=== PATIENT | female | born 1970 | race American Indian/Alaskan Native ===

== ENCOUNTER 2021-11-18 20:36 | Emergency (ER) | payer SELFPAY ==
[2021-11-18] MEDS ORDERED: SODIUM CHLORIDE 0.9% 1000 ML 1,000 ML IV ONE (20:51)
[2021-11-18] MEDS ORDERED: ALBUTEROL 2.5 MG/3 ML NEBU IH ONE (20:51)
[2021-11-18] MEDS ORDERED: IPRATROPIUM 0.02% NEBU 2.5 ML IH ONE (20:51)
[2021-11-18] MEDS ORDERED: LORazepam 2 MG/ML VIAL IV ONE (20:51)
--- NOTE | 2021-11-18 21:16 | Emergency Department Report ---
HPI - General Chief Complaint: Dyspnea/Respdistress Time Seen by Provider: 11/18/21 20:45 - HPI HPI: 51-year-old -[place] female presents to the emergency department via EMS from home with complaint of a 1 day history of progressively worsening shortness of breath, wheezing, dry cough that she feels is an asthma exacerbation. The patient did not have any home medications but was able to borrow an albuterol inhaler from a family member and says that she took 10 puffs from that inhaler without much relief. The albuterol has also made her feel anxious and jittery. She denies any fever, chest pain, lower extremity swelling. She is vaccinated for COVID-19. She received Solu-Medrol and magnesium in route with EMS. No recent travel or sick contacts at home. The patient has been intubated 1 time previously due to her asthma. ED Past Medical Hx - Past Medical History Hx Asthma: Yes - Medications Home Medications: Home Medications Medication Instructions Recorded Confirmed Last Taken Type ALBUTEROL NEB's [Proventil 0.083% 2.5 mg IH TID PRN #1 box 11/19/21 Unknown Rx NEBS] Albuterol Mdi (or & Nicu Only) 2 puff IH QID PRN #8.5 gram 11/19/21 Unknown Rx [ProAir HFA Inhaler] Azithromycin [Zithromax Z-SO] 250 mg PO DAILY #6 tab 11/19/21 Unknown Rx predniSONE [Deltasone] 20 mg PO QDAY #4 tab 11/19/21 Unknown Rx ED Review of Systems ROS: Stated complaint: DIFF BREATHING Other details as noted in HPI Comment: All other systems reviewed and negative Constitutional: denies: chills, fever Eyes: denies: eye pain, vision change ENT: denies: ear pain, throat pain Respiratory: cough, shortness of breath, wheezing Cardiovascular: denies: chest pain, edema Gastrointestinal: denies: abdominal pain, vomiting Genitourinary: denies: dysuria, discharge Musculoskeletal: denies: back pain, arthralgia Skin: denies: rash, lesions Neurological: denies: headache, weakness Psychiatric: anxiety Physical Exam - Physical Exam Vital Signs: Vital Signs 11/18/21 21:05 Temperature 98.1 F Pulse Rate 109 H Respiratory 26 H Rate Blood Pressure 159/92 [Right] O2 Sat by Pulse 95 Oximetry Physical Exam: GENERAL: The patient is well-developed well-nourished. HENT: Normocephalic. Atraumatic. Patient has moist mucous membranes. EYES: Extraocular motions are intact. NECK: Supple. Trachea is midline. CHEST/LUNGS: Moderate wheezing throughout the chest. There is tachypnea with some mild conversational dyspnea. HEART/CARDIOVASCULAR: Regular. There is mild tachycardia. There is no murmur. ABDOMEN: Abdomen is soft, nontender. Patient has normal bowel sounds. There is no abdominal distention. SKIN: Skin is warm and dry. No lower extremity pitting edema. NEURO: The patient is awake, alert, and oriented. The patient is cooperative. The patient has no focal neurologic deficits. Normal speech. MUSCULOSKELETAL: There is no tenderness or deformity. There is no limitation range of motion. ED Course Vital Signs 11/18/21 21:05 Temperature 98.1 F Pulse Rate 109 H Respiratory 26 H Rate Blood Pressure 159/92 [Right] O2 Sat by Pulse 95 Oximetry ED Medical Decision Making - Lab Data Result diagrams: 11/18/21 20:54 11/18/21 20:54 Lab Results 11/18/21 11/18/21 11/18/21 Range/Units 20:54 20:54 20:54 WBC 11.5 H (4.5-11.0) K/mm3 RBC 5.87 H (3.65-5.03) M/mm3 Hgb 12.6 (10.1-14.3) gm/dl Hct 40.1 (30.3-42.9) % MCV 68 L (79-97) fl MCH 21 L (28-32) pg MCHC 31 (30-34) % RDW 17.5 H (13.2-15.2) % Plt Count 330 (140-440) K/mm3 Lymph % (Auto) 21.6 (13.4-35.0) % [place] % (Auto) 7.1 (0.0-7.3) % Eos % (Auto) 1.3 (0.0-4.3) % Baso % (Auto) 0.2 (0.0-1.8) % Lymph # (Auto) 2.5 (1.2-5.4) K/mm3 [place] # (Auto) 0.8 (0.0-0.8) K/mm3 Eos # (Auto) 0.1 (0.0-0.4) K/mm3 Baso # (Auto) 0.0 (0.0-0.1) K/mm3 Seg Neutrophils % 69.8 (40.0-70.0) % Seg Neutrophils # 8.0 H (1.8-7.7) K/mm3 Sodium 136 L (137-145) mmol/L Potassium 3.9 (3.6-5.0) mmol/L Chloride 99.1 (98-107) mmol/L Carbon Dioxide 22 (22-30) mmol/L Anion Gap 19 mmol/L BUN 10 (7-17) mg/dL Creatinine 0.7 (0.6-1.2) mg/dL Estimated GFR > 60 ml/min BUN/Creatinine Ratio 14 % Glucose 122 H (65-100) mg/dL Calcium 8.9 (8.4-10.2) mg/dL Total Bilirubin 0.30 (0.1-1.2) mg/dL AST 13 (5-40) units/L ALT 9 (7-56) units/L Alkaline Phosphatase 103 (35-129) units/L Troponin T < 0.010 (0.00-0.029) ng/mL NT-Pro-B Natriuret Pep 31.29 (0-450) pg/mL Total Protein 8.9 H (6.3-8.2) g/dL Albumin 4.2 (3.9-5) g/dL Albumin/Globulin Ratio 0.9 % - EKG Data -: EKG Interpreted by [facility] EKG shows normal: sinus rhythm, axis, intervals, QRS complexes, ST-T waves Rate: normal - EKG Data When compared to previous EKG there are: previous EKG unavailable Interpretation: normal EKG - Radiology Data Radiology results: report reviewed XR chest 1V ap INDICATION / CLINICAL INFORMATION: SOB. COMPARISON: None available. FINDINGS: SUPPORT DEVICES: None. HEART /PULMONARY VASCULATURE: No significant abnormality. LUNGS / PLEURA: Patchy bibasilar airspace opacities. No sizable pleural effusion. No pneumothorax. ADDITIONAL FINDINGS: No significant additional findings. IMPRESSION: Patchy bibasilar airspace opacities, suspicious for pneumonia. - Medical Decision Making This patient presents to the emergency department with a complaint of shortness of breath, wheezing, coughing over the past 1 to 2 days. She did not have any response to home albuterol inhaler use. In route she got Solu-Medrol and magnesium. Initially the patient had moderate wheezing/bronchospasm. An IV was placed and she was given some IV fluid, Ativan, and then was given a prolonged breathing treatment with both albuterol and Atrovent. Chest x-ray was read by radiology as showing some basilar patchy infiltrates concerning for pneumonia. Labs have been unremarkable including CBC, metabolic panel, negative troponin and normal BNP. The patient was reevaluated multiple times over multiple hours and says she is feeling greatly improved. There is only some mild expiratory wheezing.. The patient no longer has any tachypnea or conversational dyspnea. The patient had an ambulatory pulse ox test and she did not have any significant increased work of breathing or any significant hypoxia. For these reasons patient appears safe for discharge home at this time. We discussed seeking outpatient COVID-19 testing, despite being vaccinated, secondary to the bi lateral patchy pneumonia, shortness of breath and this current pandemic. She will be discharged home with albuterol inhaler and nebulizer medications, a short course of steroids, and antibiotics. She has been instructed to follow-up with primary care and return to the emergency department with any worsening of her symptoms or with any acute distress. Critical Care Time: No Critical care attestation.: If time is entered above; I have spent that time in minutes in the direct care of this critically ill patient, excluding procedure time. ED Disposition Clinical Impression: Bronchospasm Asthma exacerbation Qualifiers: Asthma severity: unspecified severity Asthma persistence: unspecified Qualified Code(s): J45.901 - Unspecified asthma with (acute) exacerbation Pneumonia Qualifiers: Pneumonia type: due to unspecified organism Laterality: bilateral Lung location: unspecified part of lung Qualified Code(s): J18.9 - Pneumonia, unspecified organism Disposition: 01 HOME / SELF CARE / HOMELESS Is pt being admited?: No Condition: Stable Instructions: Bacterial Pneumonia (ED), Asthma, Adult, Bronchospasm, Adult, Community-Acquired Pneumonia, Adult Additional Instructions: Please follow-up with a primary care physician in the next few days. I have given you a referral for a local primary care physician, Dr. Lewis, and a primary care clinic, [facility]. With your shortness of breath, pneumonia on chest x-ray, and this current pandemic, I do recommend that you get tested for COVID-19. Unfortunately I am unable to test you for COVID-19 to the emergency department. COVID-19 test can be done at some primary care offices, some urgent cares, and there should be a list of testing facilities through the [facility]. Take all medications as prescribed. Return to the emergency department with any worsening of your symptoms, new or concerning symptoms not addressed during this current emergency department visit, or with any acute distress. Prescriptions: predniSONE [Deltasone] 20 mg PO QDAY #4 tab Albuterol Mdi (or & Nicu Only) [ProAir HFA Inhaler] 2 puff IH QID PRN #8.5 gram PRN Reason: Shortness Of Breath ALBUTEROL NEB's [Proventil 0.083% NEBS] 2.5 mg IH TID PRN #1 box PRN Reason: Wheezing Azithromycin [Zithromax Z-SO] 250 mg PO DAILY #6 tab Referrals: FAITH LEWIS MD [Staff Physician] - 3-5 Days [facility] [Provider Group] - 3-5 Days Time of Disposition: 00:31
[2021-11-18 21:20] LABS: Basophils % (Auto) 0.2 % (0.0-1.8); Eosinophils # (Auto) 0.1 K/mm3 (0.0-0.4); Eosinophils % (Auto) 1.3 % (0.0-4.3); Hematocrit 40.1 % (30.3-42.9); Hemoglobin 12.6 gm/dl (10.1-14.3); Lymphocytes # (Auto) 2.5 K/mm3 (1.2-5.4); Lymphocytes % (Auto) 21.6 % (13.4-35.0); Mean Corpuscular HGB Conc 31 % (30-34); Monocytes # (Auto) 0.8 K/mm3 (0.0-0.8); Monocytes % (Auto) 7.1 % (0.0-7.3); Platelet Count 330 K/mm3 (140-440); Red Blood Count 5.87 M/mm3 (3.65-5.03); Red Cell Distribution Width 17.5 % (13.2-15.2)
[2021-11-18 21:27] LABS: Mean Corpuscular Volume 68 fl (79-97)
[2021-11-18 21:35] LABS: Alanine Aminotransferase 9 units/L (7-56); Albumin 4.2 g/dL (3.9-5); Blood Urea Nitrogen 10 mg/dL (7-17); Calcium 8.9 mg/dL (8.4-10.2); Hemolysis Index 4
--- NOTE | 2021-11-18 21:35 | XRay Report ---
XR chest 1V ap INDICATION / CLINICAL INFORMATION: SOB. COMPARISON: None available. FINDINGS: SUPPORT DEVICES: None. HEART /PULMONARY VASCULATURE: No significant abnormality. LUNGS / PLEURA: Patchy bibasilar airspace opacities. No sizable pleural effusion. No pneumothorax. ADDITIONAL FINDINGS: No significant additional findings. IMPRESSION: Patchy bibasilar airspace opacities, suspicious for pneumonia. Signer Name: Gary Cooper MD Signed: 11/18/2021 9:31 PM Workstation Name: [id number]
[2021-11-18 21:36] LABS: BUN/Creatinine Ratio 14
[2021-11-19 03:11] VITALS: BP 117/79
--- NOTE | 2021-11-21 09:19 | Electrocardiograph Report ---
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
== END 2021-11-19 01:50 | disposition home or self-care (01) ==
LOC: ED 20:36
DX: J45.901 Unspecified asthma with (acute) exacerbation (principal); J18.9 Pneumonia, unspecified organism
CPT/HCPCS: 36415; 71045; 80053; 83880; 84484; 85025; 93005; 94644; 96361; 96374; 99284; J2060; J7030; Q0162

== ENCOUNTER 2021-12-05 06:00 | Emergency (ER) | payer SELFPAY ==
[2021-12-05] MEDS ORDERED: IPRATROPIUM 0.02% NEBU 2.5 ML IH ONE (06:37)
[2021-12-05] MEDS ORDERED: ALBUTEROL 2.5 MG/3 ML NEBU IH ONE (06:37)
[2021-12-05] MEDS ORDERED: LORazepam 2 MG/ML VIAL IV ONE (06:38)
--- NOTE | 2021-12-05 06:44 | Emergency Department Report ---
HPI - General Chief Complaint: Adult Asthma Time Seen by Provider: 12/05/21 06:31 - HPI HPI: Room 20 The patient is a 51-year-old female present with chief complaint of shortness of breath. The patient has a history of asthma states she ran out of her Advair approximately 2 months ago. The patient states a friend of hers also had Advair so she loaned her her inhaler. The patient states she ran out of that inhaler approximately 3 weeks ago for the past 3 weeks she has felt short of breath as she is rebounded. Patient states albuterol nebs helped temporarily. Patient denies history of fever but admits to an occasional nonproductive cough. Rolando locke states she has been vaccinated against COVID. EMS was called this morning secondary to shortness of breath the patient was administered 2 g of magnesium sulfate, Solu-Medrol 125 mg IV and 0.3 mg of epi by EMS prior to arrival. ED Past Medical Hx - Past Medical History Hx Asthma: Yes - Surgical History Past Surgical History?: Yes - Family History Family history: no significant - Social History Smoking Status: Never Smoker Substance Use Type: None (Denies illicit drug use), Alcohol (Occasional) - Medications Home Medications: Home Medications Medication Instructions Recorded Confirmed Last Taken Type Azithromycin [Zithromax Z-SO] 250 mg PO DAILY #6 tab 11/19/21 Unknown Rx predniSONE [Deltasone] 20 mg PO QDAY #4 tab 11/19/21 Unknown Rx ALBUTEROL NEB's [Proventil 0.083% 2.5 mg IH TID PRN #1 box 12/05/21 Unknown Rx NEBS] Albuterol Mdi (or & Nicu Only) 2 puff IH QID PRN #8.5 gram 12/05/21 Unknown Rx [ProAir HFA Inhaler] Fluticasone/Salmeterol [Advair 1 puff IH BID #1 12/05/21 Unknown Rx Diskus 500-50 mcg] Prednisone [predniSONE 10 mg 10 mg PO .TAPER #1 12/05/21 Unknown Rx (6-Day Pack, 21 Tabs)] ED Review of Systems ROS: Stated complaint: ASTHMA ATTACK Other details as noted in HPI Constitutional: denies: fever Eyes: denies: eye pain ENT: denies: throat pain Respiratory: cough, shortness of breath Cardiovascular: denies: chest pain Endocrine: no symptoms reported Gastrointestinal: denies: abdominal pain Genitourinary: denies: dysuria Musculoskeletal: denies: back pain Neurological: denies: headache Physical Exam - Physical Exam Vital Signs: Vital Signs 12/05/21 06:05 Temperature 97.6 F Pulse Rate 126 H Respiratory 18 Rate Blood Pressure 190/110 [Left] O2 Sat by Pulse 24 L Oximetry Physical Exam: GENERAL: The patient is well-developed well-nourished female lying on stretcher not appearing to be in acute. [] HEENT: Normocephalic. Atraumatic. Extraocular motions are intact. Patient has moist mucous membranes. NECK: Supple. Trachea mid CHEST/LUNGS: Diffuse wheezing, coarse breath sounds. There is no respiratory distress noted. HEART/CARDIOVASCULAR: Regular. There is no tachycardia. There is no gallop rub or murmur. ABDOMEN: Abdomen is soft, nontender. Patient has normal bowel sounds. There is no abdominal distention. SKIN: There is no rash. There is no edema. There is no diaphoresis. NEURO: The patient is awake, alert, and oriented. The patient is cooperative. The patient has no focal neurologic deficits. The patient has normal speech. GCS 15 MUSCULOSKELETAL: There is no evidence of acute injury. ED Course Vital Signs 12/05/21 06:05 Temperature 97.6 F Pulse Rate 126 H Respiratory 18 Rate Blood Pressure 190/110 [Left] O2 Sat by Pulse 24 L Oximetry - Reevaluation(s) Reevaluation #1: 12/05/21 10:00 Patient states she feels much improved. Lungs clear to auscultation bilaterally ED Medical Decision Making - Differential Diagnosis Asthma exacerbation, Critical care attestation.: If time is entered above; I have spent that time in minutes in the direct care of this critically ill patient, excluding procedure time. ED Disposition Clinical Impression: Acute asthma exacerbation Disposition: HOME / SELF CARE / HOMELESS Is pt being admited?: No Does the pt Need Aspirin: No Condition: Stable Instructions: Asthma, Adult Additional Instructions: Return to the emergency department should you develop worsening symptoms, inability to tolerate food or liquids, high fever or any other concerns Prescriptions: Fluticasone/Salmeterol [Advair Diskus 500-50 mcg] 1 puff IH BID #1 Prednisone [predniSONE 10 mg (6-Day Pack, 21 Tabs)] 10 mg PO .TAPER #1 Albuterol Mdi (or & Nicu Only) [ProAir HFA Inhaler] 2 puff IH QID PRN #8.5 gram PRN Reason: Shortness Of Breath ALBUTEROL NEB's [Proventil 0.083% NEBS] 2.5 mg IH TID PRN #1 box PRN Reason: Wheezing Referrals: [facility] [Provider Group] - 3-5 Days Time of Disposition: 10:01
--- NOTE | 2021-12-05 08:42 | XRay Report ---
CHEST 1 VIEW 12/05/2021 7:33 AM INDICATION / CLINICAL INFORMATION: Shortness of breath, cough. COMPARISON: One view of the chest from 11/18/2021. FINDINGS: SUPPORT DEVICES: None. HEART / MEDIASTINUM: No significant abnormality. LUNGS / PLEURA: Nonspecific right basilar interstitial opacities are again noted. The lungs are other cole clear. No significant pleural effusion. No pneumothorax. ADDITIONAL FINDINGS: No significant additional findings. IMPRESSION: Nonspecific right basilar interstitial opacities could represent an acute infectious process given th e provided history. PA and lateral chest radiographs would be helpful for further evaluation. Signer Name: Luis Flores MD Signed: 12/05/2021 8:37 AM Workstation Name: [id number]
[2021-12-05 10:12] VITALS: BP 107/71
== END 2021-12-05 10:00 | disposition home or self-care (01) ==
LOC: ED 06:00
DX: J45.901 Unspecified asthma with (acute) exacerbation (principal)
CPT/HCPCS: 71045; 93005; 94644; 96374; 99284; J2060

== ENCOUNTER 2021-12-25 21:50 | Emergency (ER) | payer SELFPAY ==
[2021-12-25] MEDS ORDERED: ALBUTEROL 2.5 MG/3 ML NEBU IH ONE (22:23)
[2021-12-25] MEDS ORDERED: SODIUM CHLORIDE 0.9% 1000 ML 1,000 ML IV ONE (22:29)
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
[2021-12-25] MEDS ORDERED: LORazepam 1 MG TAB PO ONE (22:37)
[2021-12-25] MEDS ORDERED: LEVALBUTEROL 0.63 MG/3 ML NEBU IH ONE ×2 (22:38)
[2021-12-25 22:46] LABS: ABG Base Excess -2.3 mmol/L (-2.0-3.0); ABG HCO3 21.8 mmol/L (20.0-26.0); ABG Methemoglobin 0.3 % (0.0-1.5); ABG Oxygen Saturation 96.5 % (95.0-99.0); ABG PCO2 34.9 mm Hg; ABG PH 7.413 pH Units (7.350-7.450); ABG PO2 82.1 mm Hg (80.0-90.0)
[2021-12-25 23:20] LABS: Basophils % (Auto) 0.1 % (0.0-1.8); Eosinophils # (Auto) 0.1 K/mm3 (0.0-0.4); Eosinophils % (Auto) 0.6 % (0.0-4.3); Hematocrit 33.3 % (30.3-42.9); Hemoglobin 10.6 gm/dl (10.1-14.3); Lymphocytes # (Auto) 2.1 K/mm3 (1.2-5.4); Mean Corpuscular HGB Conc 32 % (30-34); Monocytes # (Auto) 0.5 K/mm3 (0.0-0.8); Monocytes % (Auto) 3.5 % (0.0-7.3); Platelet Count 294 K/mm3 (140-440); Red Blood Count 4.99 M/mm3 (3.65-5.03); Red Cell Distribution Width 18.2 % (13.2-15.2)
[2021-12-25 23:21] LABS: Mean Corpuscular Volume 67 fl (79-97)
[2021-12-25 23:39] LABS: Blood Urea Nitrogen 10 mg/dL (7-17); Calcium 8.6 mg/dL (8.4-10.2); Hemolysis Index 2
[2021-12-25 23:40] LABS: BUN/Creatinine Ratio 14
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
[2021-12-26] MEDS ORDERED: AZITHROMYCIN/NS 500 MG/250 ML 500 MG/250 ML BAG IV ONE (00:04)
[2021-12-26] MEDS ORDERED: cefTRIAXone/NS 2 GM/100 ML 2 GM/100 ML BAG IV ONE (00:04)
[2021-12-26] MEDS ORDERED: SODIUM CHLORIDE 0.9% 1000 ML 1,000 ML IV ONE (00:08)
[2021-12-26] MEDS ORDERED: dexAMETHasone 4 MG/ML VIAL IV ONE (03:58)
[2021-12-26 05:53] VITALS: BP 118/75
--- NOTE | 2021-12-26 10:25 | Electrocardiograph Report ---
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
== END 2021-12-26 04:50 | disposition home or self-care (01) ==
LOC: ED 21:50
DX: J96.91 Respiratory failure, unspecified with hypoxia (principal); T59.811A Toxic effect of smoke, accidental (unintentional), initial encounter; J45.901 Unspecified asthma with (acute) exacerbation; R73.9 Hyperglycemia, unspecified; Y92.89 Other specified places as the place of occurrence of the external cause
CPT/HCPCS: 36415; 71045; 80048; 82140; 82803; 83735; 83880; 84484; 84703; 85025; 93005; 93010; 94640; 96361; 96374; 99291; J1100; J7030; 94644; 99284; Q0162